=== PATIENT | female | born 2000 | race Caucasian/White ===

== ENCOUNTER 2023-02-22 10:30 | Emergency (ER) | payer BC ==
[2023-02-22] MEDS ORDERED: Lidocaine 1% with EPINEPHrine 1:100,000 50 ML MDV INFILT ONE (11:05)
[2023-02-22] MEDS ORDERED: Bacitracin Oint 1 GM U/D Packet TOP ONE (11:35)
== END 2023-02-22 11:45 | disposition home or self-care (01) ==
LOC: JP.ED 10:30
DX: S01.112A Laceration without foreign body of left eyelid and periocular area, initial encounter (principal); W22.09XA Striking against other stationary object, initial encounter
CPT/HCPCS: 12013; 99282; 99283